=== PATIENT | female | born 1980 | race Caucasian/White ===

== ENCOUNTER 2019-08-15 07:02 | Inpatient (IN) ==
[2019-08-15] MEDS ORDERED: *HR* Midazolam HCl 2 MG/2 ML VIAL ONE (07:33)
[2019-08-15] MEDS ORDERED: *HR* FentaNYL (PF) 100 MCG/2 ML VIAL ONE (07:33)
[2019-08-15] MEDS ORDERED: *HR* Rocuronium Bromide 50 MG/5 ML VIAL ONE (07:33)
[2019-08-15] MEDS ORDERED: *HR* Succinylcholine 200 MG/10 ML VIAL IVP ONE (07:33)
[2019-08-15] MEDS ORDERED: Lidocaine -MPF 2% 2 ML VIAL ONE (07:33)
[2019-08-15] MEDS ORDERED: *HR* Propofol 200 MG/20 ML VIAL IVP ONE (07:33)
[2019-08-15] MEDS ORDERED: Dexamethasone 4 MG/ML VIAL ONE (07:33)
[2019-08-15] MEDS ORDERED: Ondansetron 4 MG/2 ML VIAL ONE (07:33)
[2019-08-15] MEDS ORDERED: cefOXitin 2,000 MG in Water for inj. (sterile) 20 ML IVP ONE ×2 (07:51→07:58)
[2019-08-15] MEDS ORDERED: Ringers Solution, Lactated 1,000 ML IVC SCH ×4 (08:00→11:15)
[2019-08-15] MEDS ORDERED: Ondansetron 4 MG/2 ML VIAL IVP ONE (08:38)
[2019-08-15] MEDS ORDERED: *HR* OxyCODONE Immed Rel 5 MG TABLET PO PRN (08:38)
[2019-08-15] MEDS ORDERED: *HR* HYDROMORPHONE 2 MG/ML VIAL ONE (09:45)
[2019-08-15] MEDS ORDERED: Ketorolac 30 MG/ML VIAL ONE (09:48)
[2019-08-15] MEDS ORDERED: Ondansetron 4 MG/2 ML VIAL IVP PRN (10:57)
[2019-08-15] MEDS ORDERED: Naloxone 0.4 MG/ML INJ IVP PRN (10:57)
[2019-08-15] MEDS ORDERED: *HR* OxyCODONE/APAP 5/325 TABLET PO PRN (10:57)
[2019-08-15] MEDS ORDERED: Ketorolac 15 MG/ML VIAL IM PRN (11:03)
[2019-08-15] MEDS: *HR* HYDROmorphone (PF) 1 MG/ML SYRINGE IVP PRN ×2 (11:11→11:32)
[2019-08-15] MEDS ORDERED: *HR* OxyCODONE Immed Rel 5 MG TABLET PO SCH (12:00)
[2019-08-15] MEDS: ceFAZolin 1,000 MG in Water for inj. (sterile) 10 ML IVP SCH (15:07)
[2019-08-15] MEDS ORDERED: ceFAZolin 1,000 MG in Water for inj. (sterile) 10 ML IVP SCH (16:00)
[2019-08-15] MEDS: Ketorolac 30 MG/ML VIAL IVP SCH ×2 (16:34→22:35)
[2019-08-15] MEDS: *HR* HYDROcodone/Acet 5/325 mg TABLET PO PRN ×2 (18:12→22:08)
[2019-08-15] MEDS ORDERED: Ondansetron ODT 4 MG TAB.RAPDIS SL PRN (18:57)
[2019-08-15] MEDS: Simethicone 80 MG TAB.CHEW PO PRN (21:40)
[2019-08-16] MEDS: ceFAZolin 1,000 MG in Water for inj. (sterile) 10 ML IVP SCH ×2 (00:24→08:01)
[2019-08-16] MEDS: *HR* HYDROcodone/Acet 5/325 mg TABLET PO PRN ×3 (02:28→10:00)
[2019-08-16] MEDS: Simethicone 80 MG TAB.CHEW PO PRN ×2 (04:08→10:00)
[2019-08-16] MEDS: Ketorolac 30 MG/ML VIAL IVP SCH (04:08)
[2019-08-16 04:15] VITALS: BP 106/63
[2019-08-16 06:10] LABS: Basophils % 0.2 %; Eosinophils % 0.2 %; Hematocrit 30.3 % (35.3-44.9); Hemoglobin 9.5 g/dL (11.5-15.4); Immature Granulocytes % 0.3 % (0-4); Lymphocytes # 2.1 K/mcL (0.6-4.6); Lymphocytes % 22.9 %; Mean Corpuscular HGB Conc 31.4 g/dL (31.6-35.5); Mean Corpuscular Hemoglobin 25.6 pg (28.0-33.3); Mean Corpuscular Volume 81.7 fL (83.0-100.0); Mean Platelet Volume 10.7 fL (9.4-12.4); Monocytes % 10.8 %; Neutrophils # 6.1 K/mcL (1.6-8.9); Platelet Count 299 K/mcL (140-400); Red Blood Count 3.71 M/mcL (3.82-4.97); Red Cell Distribution Width 16.1 % (11.5-14.5); Segmented Neutrophils % 65.6 %; White Blood Count 9.3 K/mcL (4.3-11.1)
[2019-08-16 06:29] LABS: BUN/Creatinine Ratio 11 (6-26); Blood Urea Nitrogen 6 mg/dL (6-20); eGFR For African Americans > 60 (> 60); eGFR For Non-African Americans > 60 (> 60)
== END 2019-08-16 14:05 | disposition home or self-care (01) | DRG 743 ==
LOC: SAMDAY 07:02 → 1NENUOBS 11:40
PROVIDERS: ADMIT Obstetrics & Gynecology; ATTEND Obstetrics & Gynecology